=== PATIENT | female | born 1955 | race Caucasian/White ===

== ENCOUNTER 2024-10-06 11:21 | Emergency (ER) | payer MEDICARE ==
[2024-10-06] MEDS ORDERED: DIPHENHYDRAMINE25 M2 PO (12:02)
[2024-10-06] MEDS ORDERED: MOMETASONE FURO15 G1 TOP (12:02)
[2024-10-06] MEDS ORDERED: CLINDAMYCIN HC300 MG PO (12:02)
[2024-10-06] MEDS ORDERED: DEXAMETHASONE SOD PHOS INJ 4 MG/ML SDV ONE (12:12)
[2024-10-06] MEDS: DEXAMETHASONE SOD PHOS INJ 4 MG/ML SDV INJ ONE (12:25)
[2024-10-06 14:55] VITALS: PULSE 71; RESP 18; TEMP 98.4
[2024-10-06 15:08] VITALS: BP 129/84; PULSE 68; RESP 18; TEMP 98.3; O2SAT 100
== END 2024-10-06 12:22 | disposition home or self-care (01) ==
LOC: FSED 11:41
DX: L23.7 Allergic contact dermatitis due to plants, except food (principal); I12.9 Hypertensive chronic kidney disease with stage 1 through stage 4 chronic kidney disease, or unspecified chronic kidney disease; E11.22 Type 2 diabetes mellitus with diabetic chronic kidney disease; N18.9 Chronic kidney disease, unspecified; E78.5 Hyperlipidemia, unspecified; I25.2 Old myocardial infarction
CPT/HCPCS: 99283; J1100

== ENCOUNTER 2025-02-09 12:14 | Emergency (ER) | payer MEDICARE ==
[~2025-02-09] VITALS: Ht 165.1 cm; Wt 97.5 kg
[~2025-02-09 12:14] MED LIST: CLINDAMYCIN HC300 MG PO; DIPHENHYDRAMINE25 M2 PO; MOMETASONE FURO15 G1 TOP
[2025-02-09] MEDS ORDERED: CLONIDINE HCL 0.1 MG TAB ONE (16:50)
[2025-02-09] MEDS ORDERED: AMOX TR-K CLV1 EAC2 PO (16:53)
[2025-02-09] MEDS ORDERED: MUPIROCIN22 GM TOP (16:53)
[2025-02-09 16:55] VITALS: BP 205/102; TEMP 97.9
[2025-02-09] MEDS: CLONIDINE HCL 0.1 MG TAB PO ONE (16:55)
[2025-02-09 17:50] VITALS: PULSE 68; RESP 15
[2025-02-09 17:51] VITALS: O2SAT 95
== END 2025-02-09 17:59 | disposition home or self-care (01) ==
LOC: ER 15:21
DX: S61.210A Laceration without foreign body of right index finger without damage to nail, initial encounter (principal); S61.250A Open bite of right index finger without damage to nail, initial encounter; W55.01XA Bitten by cat, initial encounter; Y92.89 Other specified places as the place of occurrence of the external cause; I10 Essential (primary) hypertension; E11.9 Type 2 diabetes mellitus without complications
CPT/HCPCS: 99284